=== PATIENT | female | born 1985 | race Caucasian/White ===

== ENCOUNTER 2023-06-15 21:49 | Inpatient (IN) | payer OTHER ==
[2023-06-15 23:19] LABS: ALT (SGPT) 79 U/L (8-55); AST (SGOT) 78 U/L (5-34); Albumin 4.6 g/dL (3.5-5.0); Alkaline Phosphatase 55 U/L (40-110); Anion Gap 17 mmol/L (10-20); BUN (Urea Nitrogen) 9 mg/dL (7.0-18.7); Bilirubin, Total 0.3 mg/dL (0.2-1.2); Calc. Creatinine Clearance 0 mL/min (70-130); Calcium 8.8 mg/dL (7.8-10.44); Carbon Dioxide 21 mmol/L (22-29); Chloride 101 mmol/L (98-107); Estimated GFR 115; Globulin 3.4 g/dL (2.4-3.5); Glucose 149 mg/dL (70-105); Potassium 3.8 mmol/L (3.5-5.1); Sodium 135 mmol/L (136-145)
[2023-06-15 23:20] LABS: Troponin I Less than 0.010 ng/mL (< 0.028)
[2023-06-15 23:22] LABS: Influenza A by NAA Not Detected (NotDetected); Influenza B by NAA Not Detected (NotDetected); SARS-CoV-2 NAA Rapid Test Not Detected (NotDetected)
[2023-06-15 23:26] LABS: #Eosinphils 0.1 10x3/uL (0.0-0.5); #Monocytes 0.6 10x3/uL (0.0-1.1); #Neutrophils 2.7 10x3/uL (1.5-8.4); %Basophils 0.4 % (0.0-2.0); %Eosinophils 1.1 % (0.0-6.0); %Lymphocytes 35.5 % (18.0-47.0); %Monocytes 11.3 % (0.0-10.0); %Neutrophils 48.8 % (40.0-75.0); Hematocrit 37.5 % (34.9-44.5); Mean Corpuscular HGB CONC 34.7 g/dL (32.0-36.0); Mean Corpuscular Hemoglobin 30.9 pg (27.0-33.0); Mean Corpuscular Volume 89.1 fl (81.6-98.3); Mean Platelet Volume 10.5 fl (7.4-10.4); Platelet Count 228 10x3/uL (150-450); RBC Distribution Width 12.1 % (11.5-14.5); Red Blood Cell (RBC) Count 4.21 10x6/uL (3.90-5.03); White Blood Cell (WBC) Count 5.6 10x3/uL (3.5-10.5)
[2023-06-15] MEDS ORDERED: Cefepime 2 GM VIAL ONE (23:58)
[2023-06-16] MEDS ORDERED: Dextrose 5% in Water 1,000 ML IV PRN (00:52)
[2023-06-16] MEDS ORDERED: Ondansetron PF 4 MG/2 ML Vial IVP PRN (00:52)
[2023-06-16] MEDS ORDERED: Calcium Carbonate 500 MG ChewTAB PO PRN (00:52)
[2023-06-16] MEDS ORDERED: Dextrose 50% Abboject 50 ML SYRINGE SLOW IVP PRN (00:52)
[2023-06-16] MEDS ORDERED: Glucagon 1 MG/ML KIT IM PRN (00:52)
[2023-06-16] MEDS ORDERED: Senokot S 8.6-50 MG TAB PO PRN ×2 (00:52→12:30)
[2023-06-16] MEDS ORDERED: Ipratropium/Albuterol 3 ML NEB NEB PRN (00:56)
[2023-06-16 02:21] LABS: Bilirubin Neg (Negative); Blood, Urine Negative (Negative); Clarity Clear (Clear); Glucose, Urine (Dipstick) Normal (Negative); Ketone, Urine 5 mg/dL (Negative); Leukocyte 500 (Negative); Nitrite Negative (Negative); Protein, Urine (Dipstick) Negative (Neg-Trace); Urobilinogen Normal mg/dL (Less than 2)
[2023-06-16] MEDS: Lactated Ringer's 500 ML IV SCH (02:28)
[2023-06-16 02:33] LABS: Bacteria/HPF Rare-Few HPF (None Seen); CAUTI Indications for Culture Fever or rigors; RBC/HPF 0-3 HPF (0-3)
[2023-06-16 02:34] LABS: Urine Culture Reflex No No
[2023-06-16] MEDS ORDERED: Azithromycin 500 MG VIAL ONE (02:37)
[2023-06-16] MEDS: Lactated Ringer's 1,000 ML IV SCH (02:44)
[2023-06-16] MEDS: Azithromycin 500 MG in Sodium Chloride 0.9% 250 ML 250 ML IVPB SCH (02:44)
[2023-06-16] MEDS ORDERED: guaiFENesin/Codeine Phosphate 100 mg/10 mg 5 ml UD Cup ONE (02:51)
[2023-06-16] MEDS: Guaifenesin DM 100-10/5 ML UDCUP PO PRN (02:52)
[2023-06-16 04:17] LABS: #Monocytes 0.7 10x3/uL (0.0-1.1); #Neutrophils 3.2 10x3/uL (1.5-8.4); %Basophils 0.3 % (0.0-2.0); %Eosinophils 0.5 % (0.0-6.0); %Lymphocytes 32.5 % (18.0-47.0); %Monocytes 10.8 % (0.0-10.0); %Neutrophils 53.2 % (40.0-75.0); Hematocrit 33.5 % (34.9-44.5); Hemoglobin 11.6 g/dL (12.0-15.5); Mean Corpuscular HGB CONC 34.6 g/dL (32.0-36.0); Mean Corpuscular Hemoglobin 30.9 pg (27.0-33.0); Mean Corpuscular Volume 89.1 fl (81.6-98.3); Mean Platelet Volume 10.4 fl (7.4-10.4); Platelet Count 198 10x3/uL (150-450); RBC Distribution Width 12.2 % (11.5-14.5); Red Blood Cell (RBC) Count 3.76 10x6/uL (3.90-5.03)
[2023-06-16 04:24] LABS: Lactic Acid 1.4 mmol/L (0.5-2.2)
[2023-06-16 04:30] LABS: ALT (SGPT) 67 U/L (8-55); AST (SGOT) 61 U/L (5-34); Alkaline Phosphatase 50 U/L (40-110); Anion Gap 13 mmol/L (10-20); BUN (Urea Nitrogen) 7 mg/dL (7.0-18.7); Bilirubin, Total 0.3 mg/dL (0.2-1.2); Calc. Creatinine Clearance 0 mL/min (70-130); Calcium 7.9 mg/dL (7.8-10.44); Carbon Dioxide 20 mmol/L (22-29); Chloride 105 mmol/L (98-107); Estimated GFR 116; Globulin 2.8 g/dL (2.4-3.5); Glucose 189 mg/dL (70-105); Potassium 3.8 mmol/L (3.5-5.1); Protein, Total 6.8 g/dL (6.0-8.3); Sodium 134 mmol/L (136-145)
[2023-06-16] MEDS: Fluticasone Propionate Nasal Spray 16 gm Bottle NASAL SCH (09:00)
[2023-06-16] MEDS: Fenofibrate Nanocrystallized 145 MG TAB PO SCH (09:00)
[2023-06-16] MEDS: glipiZIDE 5 MG TAB PO SCH (09:00)
[2023-06-16] MEDS: Enoxaparin 40 MG (0.4 mL) SYRINGE SC SCH (09:00)
[2023-06-16] MEDS ORDERED: Enoxaparin 40 MG (0.4 mL) SYRINGE ONE (09:15)
[2023-06-16] MEDS: Acetaminophen 325 MG TAB PO PRN (11:37)
[2023-06-16] MEDS: Cefepime 2 GM in Sodium Chloride 0.9% 100 ML IVPB SCH (11:38)
[2023-06-16] MEDS ORDERED: Acetaminophen 325 MG TAB ONE (11:39)
[2023-06-16] MEDS ORDERED: Cefepime 2 GM VIAL ONE (11:39)
[2023-06-16] MEDS ORDERED: Ipratropium/Albuterol 3 ML NEB ONE ×2 (12:06→16:01)
[2023-06-16] MEDS: Ipratropium/Albuterol 3 ML NEB NEB SCH (12:16)
[2023-06-16] MEDS: Vancomycin 1.5 GRAM/300 ML BAG 1.5 GM in Premix 1 BAG IVPB SCH (13:19)
[2023-06-16 17:08] LABS: Legionella Urinary Ag Negative (Negative); Strep pneumo Urine Ag NEGATIVE (NEGATIVE)
[2023-06-16 17:26] VITALS: BMI 44.8
[2023-06-16] MEDS: Acyclovir 400 mg Tablet PO SCH (20:55)
[2023-06-17] MEDS: Levothyroxine Sodium 25 MCG TAB PO SCH (05:10)
[2023-06-17 05:16] LABS: #Eosinphils 0.1 10x3/uL (0.0-0.5); #Monocytes 0.6 10x3/uL (0.0-1.1); #Neutrophils 3.2 10x3/uL (1.5-8.4); %Basophils 0.5 % (0.0-2.0); %Eosinophils 1.3 % (0.0-6.0); %Lymphocytes 37.5 % (18.0-47.0); %Monocytes 9.4 % (0.0-10.0); %Neutrophils 49.3 % (40.0-75.0); Hematocrit 36.9 % (34.9-44.5); Hemoglobin 12.2 g/dL (12.0-15.5); Mean Corpuscular HGB CONC 33.1 g/dL (32.0-36.0); Mean Corpuscular Volume 90.7 fl (81.6-98.3); Mean Platelet Volume 10.3 fl (7.4-10.4); Platelet Count 244 10x3/uL (150-450); RBC Distribution Width 12.3 % (11.5-14.5); Red Blood Cell (RBC) Count 4.07 10x6/uL (3.90-5.03); White Blood Cell (WBC) Count 6.4 10x3/uL (3.5-10.5)
[2023-06-17 05:33] LABS: PTT 31.3 sec (22.0-33.0); Prothrombin Time 10.7 sec (9.5-12.1)
[2023-06-17 05:39] LABS: ALT (SGPT) 56 U/L (8-55); AST (SGOT) 37 U/L (5-34); Albumin 4.3 g/dL (3.5-5.0); Alkaline Phosphatase 46 U/L (40-110); Anion Gap 14 mmol/L (10-20); BUN (Urea Nitrogen) 6 mg/dL (7.0-18.7); Bilirubin, Total 0.3 mg/dL (0.2-1.2); Calc. Creatinine Clearance 165 mL/min (70-130); Calcium 8.8 mg/dL (7.8-10.44); Carbon Dioxide 23 mmol/L (22-29); Chloride 104 mmol/L (98-107); Estimated GFR 115; Globulin 2.9 g/dL (2.4-3.5); Glucose 138 mg/dL (70-105); Magnesium 1.9 mg/dL (1.6-2.6); Potassium 3.7 mmol/L (3.5-5.1); Protein, Total 7.2 g/dL (6.0-8.3); Sodium 137 mmol/L (136-145)
[2023-06-17 06:02] LABS: HBSAg Index 0.27 S/CO (0-0.99); Hep B Surf Ag Non-Reactive S/CO (NonReactive)
[2023-06-17] MEDS: predniSONE 20 MG TAB PO SCH (08:11)
[2023-06-17] MEDS: Fenofibrate Nanocrystallized 145 MG TAB PO SCH (08:11)
[2023-06-17] MEDS: HumaLOG 300 UNITS/3 ML VIAL SC PRN (11:28)
[2023-06-17] MEDS: glyBURIDE 5 MG TAB PO SCH (12:10)
[2023-06-17 12:32] LABS: Vancomycin, Trough 4.8 ug/mL
[2023-06-17 13:22] LABS: HBCM Index 0.08 S/CO (0-0.79); Hep A IgM AB Non-Reactive S/CO (NonReactive); Hep A IgM S/CO 0.12 S/CO (0-0.79); Hep C IgG Ab Non-Reactive S/CO (NonReactive); Hep C Index 0.07 S/CO (0-0.79); Hepatitis B Core IgM Abs Non-Reactive S/CO (NonReactive)
[2023-06-17] MEDS: VANCOMYCIN 1.75 GM/350 ML BAG 1.75 GM in Premix 1 BAG IVPB SCH (13:30)
[2023-06-17] MEDS: Enoxaparin 40 MG (0.4 mL) SYRINGE SC SCH (21:01)
[2023-06-18 04:26] LABS: #Monocytes 0.7 10x3/uL (0.0-1.1); #Neutrophils 2.9 10x3/uL (1.5-8.4); %Basophils 0.3 % (0.0-2.0); %Eosinophils 0.5 % (0.0-6.0); %Lymphocytes 41.8 % (18.0-47.0); %Monocytes 10.5 % (0.0-10.0); %Neutrophils 44.6 % (40.0-75.0); Hematocrit 35.3 % (34.9-44.5); Mean Corpuscular Hemoglobin 30.3 pg (27.0-33.0); Mean Corpuscular Volume 89.1 fl (81.6-98.3); Mean Platelet Volume 10.3 fl (7.4-10.4); Platelet Count 261 10x3/uL (150-450); RBC Distribution Width 12.1 % (11.5-14.5); Red Blood Cell (RBC) Count 3.96 10x6/uL (3.90-5.03); White Blood Cell (WBC) Count 6.5 10x3/uL (3.5-10.5)
[2023-06-18 04:37] LABS: ALT (SGPT) 46 U/L (8-55); AST (SGOT) 21 U/L (5-34); Albumin 4.4 g/dL (3.5-5.0); Alkaline Phosphatase 49 U/L (40-110); Anion Gap 13 mmol/L (10-20); BUN (Urea Nitrogen) 8 mg/dL (7.0-18.7); Bilirubin, Total 0.3 mg/dL (0.2-1.2); Calc. Creatinine Clearance 175 mL/min (70-130); Calcium 8.9 mg/dL (7.8-10.44); Carbon Dioxide 22 mmol/L (22-29); Chloride 106 mmol/L (98-107); Estimated GFR 117; Glucose 122 mg/dL (70-105); Magnesium 2.2 mg/dL (1.6-2.6); Potassium 3.9 mmol/L (3.5-5.1); Protein, Total 7.4 g/dL (6.0-8.3); Sodium 137 mmol/L (136-145)
[2023-06-18] MEDS: glyBURIDE 5 MG TAB PO SCH (08:24)
[2023-06-19 11:24] VITALS: BP 121/72; TEMP 98.1
== END 2023-06-19 11:07 | disposition home or self-care (01) | DRG 871 ==
LOC: CSHERS 21:49 → CSHERHOLD 06-16 01:52 → CSHTELE 06-16 16:45
PROVIDERS: ADMIT Student in an Organized Health Care Education/Training Program; ATTEND Family Medicine
DX: A41.9 Sepsis, unspecified organism (principal); J18.9 Pneumonia, unspecified organism; J96.01 Acute respiratory failure with hypoxia; Z68.41 Body mass index [BMI] 40.0-44.9, adult; E87.1 Hypo-osmolality and hyponatremia; E11.9 Type 2 diabetes mellitus without complications; R65.20 Severe sepsis without septic shock; E03.9 Hypothyroidism, unspecified; E78.5 Hyperlipidemia, unspecified; J45.909 Unspecified asthma, uncomplicated; E66.9 Obesity, unspecified; Z90.710 Acquired absence of both cervix and uterus; Z90.49 Acquired absence of other specified parts of digestive tract; Z98.890 Other specified postprocedural states
CPT/HCPCS: 36415; 36416; 71045; 71275; 80053; 80074; 80202; 81001; 82010; 83605; 83735; 83880; 84145; 84443; 84484; 85025; 85379; 85610; 85730; 87040; 87070; 87081; 87205; 87449; 87899; 93005; 94640; 94760; 94762; 96365; 96366; 96367; J0456; J0692; J1650; J1815; J3370; J3490; J7030; J7050; J7120; J7512; J7620